=== PATIENT | female | born 1990 | race Caucasian/White ===

== ENCOUNTER 2021-09-02 06:06 | Inpatient (IN) | payer OTHER ==
[~2021-09-02] VITALS: Ht 167.6 cm; Wt 95.7 kg
[2021-09-02 06:46] LABS: HEMOGLOBIN 13.4 gm/dl (12.3-15.3); RED BLOOD COUNT 4.24 M/UL (4.00-5.10); WHITE BLOOD COUNT 9.9 K/UL (4.5-11.0)
[2021-09-02] MEDS ORDERED: PRILOSEC10 M1 PO (07:17)
[2021-09-02] MEDS ORDERED: IBUPROFEN800 MG PO (14:06)
[2021-09-02] MEDS ORDERED: HYDROCODON-ACE1 EAC4 PO (14:06)
[2021-09-02] MEDS ORDERED: COLACE 100MG C100 MG PO (14:06)
[2021-09-03 05:29] LABS: HEMOGLOBIN 11.2 gm/dl (12.3-15.3)
== END 2021-09-03 16:02 | disposition home or self-care (01) | DRG 807 ==
LOC: OB 06:06
PROVIDERS: Obstetrics & Gynecology; ADMIT Obstetrics & Gynecology
PROC: 10E0XZZ Delivery of Products of Conception, External Approach (ICD-10-PCS; principal; 2021-09-02)
PROC: 0KQM0ZZ Repair Perineum Muscle, Open Approach (ICD-10-PCS; 2021-09-02)
PROC: 10907ZC Drainage of Amniotic Fluid, Therapeutic from Products of Conception, Via Natural or Artificial Opening (ICD-10-PCS; 2021-09-02)
PROC: 3E033VJ Introduction of Other Hormone into Peripheral Vein, Percutaneous Approach (ICD-10-PCS; 2021-09-02)
PROC: 0UH97HZ Insertion of Contraceptive Device into Uterus, Via Natural or Artificial Opening (ICD-10-PCS; 2021-09-02)
PROC: 4A1H7CZ Monitoring of Products of Conception, Cardiac Rate, Via Natural or Artificial Opening (ICD-10-PCS; 2021-09-02)
PROC: 10H073Z Insertion of Monitoring Electrode into Products of Conception, Via Natural or Artificial Opening (ICD-10-PCS; 2021-09-02)
DX: O70.1 Second degree perineal laceration during delivery (principal); Z37.0 Single live birth; Z20.822 Contact with and (suspected) exposure to COVID-19; Z3A.39 39 weeks gestation of pregnancy; Z98.890 Other specified postprocedural states
CPT/HCPCS: 36415; 81001; 82800; 85014; 85018; 85025; J2590; J7120; U0002